=== PATIENT | female | born 1950 | race African-American/Black ===

== ENCOUNTER 2018-11-09 08:40 | Inpatient (IN) | payer BC, MEDICAID ==
[~2018-11-09] VITALS: Ht 175.3 cm; Wt 108.4 kg
[~2018-11-09 08:40] MED LIST: ATEN50TA PO; HYDR25TA PO; TRAM100T3
[2018-11-09 09:21] LABS: EOSINOPHILS % 3.9 % (0.0-5.0); HEMATOCRIT. 40.5 % (36.0-48.0); HEMOGLOBIN. 13.2 g/dL (12.0-16.0); LYMPHOCYTES % 42.6 % (20.0-50.0); MEAN CORPUSCULAR HEMOGLOBIN 26.4 pg (28.0-32.0); MEAN CORPUSCULAR VOLUME 81.2 fL (81.0-99.0); MEAN PLATELET VOLUME 9.9 fl (7.4-10.4); MONOCYTES % 7.8 % (2.0-8.0); NEUTROPHILS % 44.7 % (40.0-76.0); PLATELET 171 x1000/uL (130-400); RED BLOOD CELL COUNT 4.99 mill/uL (4.2-5.4); RED CELL DISTRIBUTION WIDTH 19.9 % (11.6-14.6)
[2018-11-09 09:30] LABS: CHLORIDE 107 mEq/L (98-107)
[2018-11-09] MEDS ORDERED: AMLODIPINE 5MG TABLET PO ONE (09:45)
[2018-11-09 11:16] LABS: CLARITY URINE CLEAR (CLEAR); COLOR URINE YELLOW (YELLOW); KETONES URINE NEGATIVE (NEGATIVE); LEUKOCYTE ESTERASE URINE TRACE (NEGATIVE); NITRITE URINE POSITIVE (NEGATIVE); OCCULT BLOOD URINE 1+ (NEGATIVE); PH URINE 7.5 (4.5-8.0); PROTEIN URINE TRACE (NEGATIVE); SPECIFIC GRAVITY URINE 1.014 (1.005-1.030); UROBILINOGEN URINE 0.2 E.U./dL (0.2-1.0)
[2018-11-09] MEDS ORDERED: DEXTROSE 50% WATER 50ML SYRINGE IV PRN (13:00)
[2018-11-09] MEDS ORDERED: HALOPERIDOL LACTATE 5MG/ML VIAL IM PRN (13:00)
[2018-11-09] MEDS ORDERED: ONDANSETRON HCL 4MG/2ML INJ IV PRN (13:00)
[2018-11-09] MEDS ORDERED: GUAIFENESIN 200MG/10ML SUGAR FREE UDC PO PRN (13:00)
[2018-11-09] MEDS ORDERED: MAGNESIUM/ALUMINUM HYDROXIDE/SIMETHICONE 30ML UDC PO PRN (13:00)
[2018-11-09] MEDS ORDERED: CLONIDINE 0.1MG TABLET PO PRN (13:00)
[2018-11-09] MEDS ORDERED: IPRATROPIUM/ALBUTEROL 0.5-3(2.5)MG/3ML NEB INH PRN (13:00)
[2018-11-09] MEDS ORDERED: DOCUSATE SODIUM 100MG CAPSULE PO PRN (13:00)
[2018-11-09] MEDS ORDERED: ACETAMINOPHEN 325MG TABLET PO PRN (13:00)
[2018-11-09] MEDS ORDERED: LORAZEPAM 0.5MG TABLET PO PRN (13:00)
[2018-11-09] MEDS: INSULIN LISPRO 100 UNITS/ML SUBCUT SCH ×3 (13:20→20:38)
[2018-11-09] MEDS ORDERED: POTASSIUM CHLORIDE 20MEQ TABLET SR PO NR (13:29)
[2018-11-09] MEDS: AMLODIPINE 10MG TABLET PO SCH (13:30)
[2018-11-09] MEDS ORDERED: ENOXAPARIN 30MG/0.3ML SYR SUBCUT SCH (13:45)
[2018-11-09] MEDS ORDERED: LEVOFLOXACIN 500MG PREMIX 100 ML IV SCH (13:45)
[2018-11-09 14:43] LABS: ETHANOL BLOOD < 10 mg/dL
[2018-11-09 14:45] LABS: LDL CHOLESTEROL 134 mg/dL (5-100)
[2018-11-09 14:47] LABS: HDL CHOLESTEROL 82 mg/dL (40-59)
[2018-11-09 14:51] LABS: CREATINE KINASE 101 IU/L (26-192)
[2018-11-09 14:52] LABS: CREATINE KINASE MB FRACTION 1.4 ng/mL (0.5-3.6)
[2018-11-09] MEDS: BLOOD SUGAR DIAGNOSTIC STRIP TEST SCH ×3 (15:00→20:38)
[2018-11-09] MEDS ORDERED: MORPHINE SULFATE 4 MG/ML CPJ (NOT FOR IM USE) IV PRN (15:02)
[2018-11-09 17:20] VITALS: BP 143/75
[2018-11-09] MEDS ORDERED: TRAMADOL 50MG TABLET PO PRN (17:39)
[2018-11-09] MEDS ORDERED: AMLO10TA4 MT (18:30)
[2018-11-09] MEDS ORDERED: OXYCODONE HCL/ACETAMINOPHEN 5/325MG TABLET PO PRN (18:30)
[2018-11-09] MEDS ORDERED: CEFTRIAXONE 1 G PREMIX 50 ML IV SCH (18:30)
[2018-11-09 20:00] VITALS: BP_SYST 147; BP_SYST 154; BP_SYST 156; BP_DIAS 61; BP_DIAS 82; BP_DIAS 86
[2018-11-09] MEDS: FAMOTIDINE 20MG TABLET PO SCH (20:36)
[2018-11-09] MEDS: METOPROLOL TARTRATE 25MG TABLET PO SCH (20:37)
[2018-11-09] MEDS: LISINOPRIL 20MG TABLET PO SCH (20:41)
[2018-11-09] MEDS ORDERED: ZOLPIDEM TARTRATE 5MG TABLET PO PRN (21:00)
[2018-11-09] MEDS ORDERED: ATORVASTATIN CALCIUM 10MG TABLET PO SCH (21:00)
[2018-11-10] VITALS: BP 138/65
[2018-11-10 02:42] LABS: CREATINE KINASE 84 IU/L (26-192)
[2018-11-10 02:43] LABS: CREATINE KINASE MB FRACTION 1.5 ng/mL (0.5-3.6)
[2018-11-10 04:00] VITALS: BP 121/66
[2018-11-10] MEDS: BLOOD SUGAR DIAGNOSTIC STRIP TEST SCH ×2 (06:28→11:16)
[2018-11-10] MEDS: INSULIN LISPRO 100 UNITS/ML SUBCUT SCH ×2 (06:28→11:16)
[2018-11-10 07:27] LABS: HEMATOCRIT 38.6 % (36.0-48.0); HEMOGLOBIN 12.4 g/dL (12.0-16.0); PLATELET 173 x1000/uL (130-400); RED BLOOD CELL COUNT 4.77 mill/uL (4.2-5.4); RED CELL DISTRIBUTION WIDTH 19.8 % (11.6-14.6)
[2018-11-10 07:37] LABS: CHLORIDE 110 mEq/L (98-107)
[2018-11-10 08:00] VITALS: BP 117/53
[2018-11-10] MEDS: AMLODIPINE 10MG TABLET PO SCH (08:44)
[2018-11-10] MEDS: FAMOTIDINE 20MG TABLET PO SCH (08:45)
[2018-11-10] MEDS: METOPROLOL TARTRATE 25MG TABLET PO SCH (08:45)
[2018-11-10] MEDS: LISINOPRIL 20MG TABLET PO SCH (08:45)
[2018-11-10] MEDS ORDERED: ASPIRIN 325MG EC TABLET PO SCH (09:00)
[2018-11-10 10:25] LABS: *AMPHETAMINES SCREEN URINE NEGATIVE (NEGATIVE); *BARBITURATES SCREEN URINE NEGATIVE (NEGATIVE); *BENZODIAZEPINES SCREEN URINE NEGATIVE (NEGATIVE); *COCAINE SCREEN URINE NEGATIVE (NEGATIVE); METHADONE URINE SCREEN NEGATIVE (NEGATIVE)
[2018-11-10 10:27] LABS: CANNABINOID URINE SCREEN NEGATIVE (NEGATIVE); OPIATES URINE SCREEN NEGATIVE (NEGATIVE); PHENCYCLIDINE URINE SCREEN NEGATIVE (NEGATIVE)
[2018-11-10 12:00] VITALS: BP 129/85
[2018-11-10] MEDS ORDERED: LEVOFLOXACIN 500MG PREMIX 100 ML IV SCH (13:00)
[2018-11-10 13:10] VITALS: BP 129/81
[2018-11-10] MEDS ORDERED: CEFTRIAXONE 1 G PREMIX 50 ML IV SCH (18:00)
== END 2018-11-10 16:25 | disposition home or self-care (01) | DRG 73 ==
LOC: ER 08:40 → SUPCPDRO 12:41 → EDBEDREQ 14:46 → 8WST 15:30 → ENRESERV 15:56
PROVIDERS: ADMIT Internal Medicine; ATTEND Internal Medicine
DX: G90.8 Other disorders of autonomic nervous system (principal); I50.33 Acute on chronic diastolic (congestive) heart failure; N39.0 Urinary tract infection, site not specified; R07.89 Other chest pain; G95.20 Unspecified cord compression; E11.9 Type 2 diabetes mellitus without complications; E66.9 Obesity, unspecified; Z96.653 Presence of artificial knee joint, bilateral; E78.5 Hyperlipidemia, unspecified; E87.6 Hypokalemia; I11.0 Hypertensive heart disease with heart failure; I16.0 Hypertensive urgency; Z90.710 Acquired absence of both cervix and uterus; Z98.1 Arthrodesis status; Z68.35 Body mass index [BMI] 35.0-35.9, adult; Z88.8 Allergy status to other drugs, medicaments and biological substances; Z88.7 Allergy status to serum and vaccine
CPT/HCPCS: 36415; 71045; 80048; 80061; 80305; 80320; 82550; 82553; 82962; 83036; 83605; 83880; 84484; 85027; 93005; 93306; 93880; 93970; 96365; 96366; 99285; J0696; J1956; J7050; G0480